=== PATIENT | male | born 1965 | race Caucasian/White ===

== ENCOUNTER 2017-07-12 21:20 | Inpatient (IN) | payer BC ==
[~2017-07-12] VITALS: Ht 172.7 cm; Wt 79.3 kg
[~2017-07-12 21:20] MED LIST: BRIM15DR7 BOTH EYES; BROM1.7D9 OP; CYCL1DRO BOTH EYES; LATA2.5D2 BOTH EYES; LEVO125T75 PO; MECL12.574 PO; TOPI-25 PO
[2017-07-12] MEDS ORDERED: morphine 4 MG/ML VIAL IV STA (22:42)
[2017-07-12] MEDS ORDERED: SOD CHLORIDE 0.9% 500 ML IV STA (22:42)
[2017-07-12] MEDS ORDERED: ONDANSETRON 4 MG INJ IV STA (22:42)
[2017-07-12 23:23] LABS: ADD UMIC NO; UR ASCORBIC ACID NEGATIVE (NEGATIVE); UR BILIRUBIN (Dip) NEGATIVE (NEGATIVE); UR BLOOD (Dip) NEGATIVE (NEGATIVE); UR CLARITY CLEAR (CLEAR); UR COLOR YELLOW (YELLOW); UR GLUCOSE (Dip) NEGATIVE (NEGATIVE); UR KETONES (Dip) NEGATIVE (NEGATIVE); UR LEUKOCYTE ESTERASE (Dip) NEGATIVE Leu/ul (NEGATIVE); UR NITRITE (Dip) NEGATIVE (NEGATIVE); UR SPECIFIC GRAVITY (Dip) 1.025 (1.003-1.030); UR TOTAL PROTEIN (Dip) NEGATIVE (NEGATIVE); UR UROBILINOGEN (Dip) NEGATIVE (NEGATIVE)
--- NOTE | 2017-07-12 23:38 | RADRPT ---
PROCEDURE: XR Chest. CLINICAL INDICATION: Abdominal pain. TECHNIQUE: 2 frontal views of the chest COMPARISON: 11/16/2016 FINDINGS: The cardiomediastinal silhouette is within normal limits. Hypoinflated lungs with mild pulmonary vas cular crowding at lung bases, similar in appearance to prior examination. The lungs are clear. No si gns of pleural fluid or pneumothorax are seen. The osseous structures and soft tissues are unremarka ble. IMPRESSION: No evidence for active cardiopulmonary disease. RPTAT: [facility] Physician Jose Date Time Electronically viewed and signed by Lisbeth Ponce Physician on 07/12/2017 23:38 RS/
--- NOTE | 2017-07-12 23:54 | RADRPT ---
PROCEDURE: CT Abdomen and Pelvis without contrast. CLINICAL INDICATION: Abdominal pain. TECHNIQUE: A CT scan of the abdomen and pelvis was performed without intravenous contrast. Weinstein l and sagittal reformatted images were generated. Images were reviewed on a high-resolution PACS wor kstation. CTDIvol: 10.83 mGy. DLP: 639.42 mGy-cm. One or more of the following dose reduction techniques were used: - Automated exposure control. - Adjustment of the mA and/or kV according to patient size. - Use of iterative reconstruction technique. COMPARISON: None. FINDINGS: Minimal dependent atelectatic changes in both lower lobes. Evaluation of the abdominal and pelvic viscera is limited by the lack of oral and intravenous contra st. The liver is unremarkable. The gallbladder is normal in appearance. The common bile duct is not dila jarvis. The spleen is not enlarged. No pancreatic lesion is identified and there is no pancreatic ducta l dilatation. The adrenal glands are unremarkable. The kidneys are normal in size. There is no perinephric fat stranding. No hydronephrosis is seen. Th ere are nonobstructing stones in both kidneys measuring up to 2 mm on the right. There are patchy inflammatory opacities in the central small bowel mesentery. The small and large b owel are normal in caliber. There is no bowel wall thickening. There is severe colonic diverticulosi s, most prominent along the descending and sigmoid colon. The appendix is prominent (11 mm diameter) , however there are no periappendiceal inflammatory changes. The urinary bladder is unremarkable. The prostate gland is enlarged. There is a small fat containing right inguinal hernia. No lymphadenopathy is identified. There is no ascites. No pneumoperitoneum is seen. There are no art erial calcifications. No suspicious osseous lesion is idenitified. IMPRESSION: 1. Patchy inflammatory opacities in the central small bowel mesentery. These are nonspecific, but m ight represent a panniculitis, lymphadenitis, or possibly lymphedema related to a neoplastic process . 2. Nonobstructing stones in both kidneys measuring up to 2 mm on the right. 3. Prominent appendix (11 mm diameter). This raises the possibility of appendicitis, however there are no periappendiceal inflammatory changes. If there is concern for appendicitis, close clinical f ollow-up is recommended. 4. Severe colonic diverticulosis, most prominent along the descending and sigmoid colon. 5. Enlarged prostate gland. Correlation with PSA level is recommended. 6. Small fat containing right inguinal hernia. RPTAT: HTAR .Cristopher Lou MD, Date Time Electronically viewed and signed by .Cristopher Lou MD, on 07/12/2017 23:53 .R/
--- NOTE | 2017-07-13 00:09 | RADRPT ---
PROCEDURE: US Scrotum. CLINICAL INDICATION: Abdominal pain TECHNIQUE: Multiple sonographic images of the scrotal region were obtained utilizing a linear arra y transducer with grayscale and color-flow Doppler imaging. The images were reviewed on a high-resol [employer] PACS workstation. COMPARISON: No prior studies are available for comparison. FINDINGS: The right testicle is well visualized and has a normal echotexture. No focal areas of abnormal echog enicity are visualized. The right testicle measures 4.3 x 2.1 x 2.6 cm. There is normal color-flow and arterial flow. The right epididymis is visualized and unremarkable in appearance. There is cb l color-flow. The left testicle is well visualized and has a normal echotexture. No focal areas of abnormal echoge nicity are visualized. The left testicle measures 4.2 x 2.2 x 3.2 cm. There is normal color-flow and arterial flow. Enlarged left epididymal head with multiple cystic structures the largest 4.1 x 2.3 x 3.4 cm compatible with a spermatocele. The scrotal wall is unremarkable. No swelling or edema is seen. No other incidental abnormality is identified. IMPRESSION: Enlarged left epididymal head with multiple cystic structures the largest 4.1 x 2.3 x 3.4 cm compati ble with a spermatocele. No evidence of testicular torsion. RPTAT: HJES .Figueroa Diaz MD, MD Date Time Electronically viewed and signed by .Figueroa Diaz MD, MD on 07/13/2017 00:09 .S/
[2017-07-13 00:36] LABS: BASOPHIL # 0.1 10^3/ul (0.0-0.1); BASOPHILS % 1.2 % (0.0-2.0); EOSINOPHILS # 0.8 10^3/ul (0.0-0.5); EOSINOPHILS % 10.4 % (0.0-7.0); HEMATOCRIT 43.7 % (42.0-52.0); HEMOGLOBIN 15.3 g/dl (14.0-18.0); LYMPHOCYTES % 38.6 % (15.0-51.0); MEAN CORPUSCULAR HEMOGLOBIN 31.8 pg (29.0-33.0); MEAN CORPUSCULAR VOLUME 90.9 fl (82.0-101.0); MEAN PLATELET VOLUME 12.1 fl (7.4-10.4); MONOCYTE # 0.7 10^3/ul (0.3-0.9); MONOCYTES % 8.7 % (0.0-11.0); NEUTROPHILS % 40.8 % (39.0-77.0); PLATELET COUNT 160 10^3/UL (140-415); RED BLOOD COUNT 4.81 10^6/ul (4.70-6.10); RED CELL DISTRIBUTION WIDTH 12.9 % (11.5-14.5); WHITE BLOOD COUNT 7.7 10^3/ul (4.8-10.8)
[2017-07-13 00:58] LABS: ALANINE AMINOTRANSFERASE 45 IU/L (13-69); ALBUMIN 4.5 g/dl (3.3-4.9); ALKALINE PHOSPHATASE 49 IU/L (42-121); ANION GAP 18 (8-16); ASPARTATE AMINO TRANSFERASE 32 IU/L (15-46); BILIRUBIN,INDIRECT 0.1 mg/dl (0-1.1); BILIRUBIN,TOTAL 0.1 mg/dl (0.2-1.3); BLOOD UREA NITROGEN 25 mg/dl (7-20); CALCIUM 9.3 mg/dl (8.4-10.2); CARBON DIOXIDE 26 mmol/L (21-31); CHLORIDE 104 mmol/L (97-110); CREATININE 1.02 mg/dl (0.61-1.24); GLUCOSE 78 mg/dl (70-220); POTASSIUM 3.8 mmol/L (3.5-5.1); SODIUM 144 mmol/L (135-144); TOTAL PROTEIN 7.7 g/dl (6.1-8.1)
[2017-07-13 01:17] LABS: TROPONIN-I < 0.012 ng/ml (0.00-0.12)
[2017-07-13 01:25] VITALS: TEMP 97.5
--- NOTE | 2017-07-13 01:44 | ERA ---
ER Documentation Chief Complaint Date/Time DATE: 07/13/17 TIME: 01:38 Chief Complaint left sided abd pain x 2 months, testicular pain x 1 week HPI 52-year-old male convalescent abdominal pain for 2 months on and off. Denies any fevers or chills. Denies any nausea vomiting. Denies any other current complaints. Pain is mild to moderate intensity. He also complains of a weight loss. Also noticed new testicular lump of the past 2-3 days. ROS All systems reviewed and are negative except as per history of present illness. Medications Home Meds Active Scripts Meclizine Hcl* (Antivert*) 12.5 Mg Tab, 12.5 MG PO Q8 Y for vertigo, #30 TAB Prov:MAR BOWER 11/19/16 Reported Medications Latanoprost (Latanoprost) 2.5 Ml Drops, 1 DROP BOTH EYES QHS, #1 BOTTLE 11/16/16 Brimonidine Tartrate* (Brimonidine Tartrate*) 0.2%-15ML Drop Opht, 1 DROP BOTH EYES Q8, #1 EA 11/16/16 Bromfenac Sodium (Bromfenac Sodium) 1.7 Ml Drops, 1.7 ML OP QAM, BOTTLE 11/16/16 Cyclosporine (RESTASIS) 1 Each Droperette, 1 DROP BOTH EYES Q12, #1 BOX 11/16/16 Levothyroxine Sodium* (Levothyroxine Sodium*) 125 Mcg Tablet, 125 MCG PO BEFORE BREAKFAST, #30 TAB 11/16/16 Topiramate* (Topiramate*) 100 Mg Tablet, 100 MG PO BID, TAB 11/16/16 Allergies Allergies: Coded Allergies: No Known Allergies (Verified Allergy, Unknown, 11/17/16) PMhx/Soc Medical and Surgical Hx: pt denies Medical Hx, pt denies Surgical Hx History of Surgery: Yes (bilateral eyes 3x) Anesthesia Reaction: No Hx Neurological Disorder: No Hx Respiratory Disorders: No Hx Cardiac Disorders: No Hx Psychiatric Problems: Yes (depression) Hx Miscellaneous Medical Probl: No Hx Alcohol Use: No Hx Substance Use: No Hx Tobacco Use: No Smoking Status: Never smoker Physical Exam Vitals Vital Signs Date Time Temp Pulse Resp B/P Pulse Ox O2 Delivery O2 Flow Rate FiO2 07/13/17 01:25 97.5 60 16 155/87 100 Room Air 07/12/17 21:24 97.9 67 20 161/89 100 Physical Exam Const: [] Head: Atraumatic Eyes: Normal Conjunctiva ENT: Normal External Ears, Nose and Mouth. Neck: Full range of motion..~ No meningismus. Resp: Clear to auscultation bilaterally Cardio: Regular rate and rhythm, no murmurs Abd: Soft, non tender, non distended. Normal bowel sounds Skin: No petechiae or rashes Back: No midline or flank tenderness Ext: No cyanosis, or edema Neur: Awake and alert Psych: Normal Mood and Affect Result Diagram: 07/12/17 2350 07/12/17 2350 Results 24 hrs Laboratory Tests Test 07/12/17 23:00 07/12/17 23:50 Urine Color YELLOW Urine Clarity CLEAR Urine pH 6.0 Urine Specific [place] 1.025 Urine Ketones NEGATIVEmg/dL Urine Nitrite NEGATIVEmg/dL Urine Bilirubin NEGATIVEmg/dL Urine Urobilinogen NEGATIVEmg/dL Urine Leukocyte Esterase NEGATIVELeu/ul Urine Hemoglobin NEGATIVEmg/dL Urine Glucose NEGATIVEmg/dL Urine Total Protein NEGATIVEmg/dl White Blood Count 7.710^3/ul Red Blood Count 4.8110^6/ul Hemoglobin 15.3g/dl Hematocrit 43.7% Mean Corpuscular Volume 90.9fl Mean Corpuscular Hemoglobin 31.8pg Mean Corpuscular Hemoglobin Concent 35.0g/dl Red Cell Distribution Width 12.9% Platelet Count 30753^3/UL Mean Platelet Volume 12.1fl Neutrophils % 40.8% Lymphocytes % 38.6% Monocytes % 8.7% Eosinophils % 10.4% Basophils % 1.2% Nucleated Red Blood Cells % 0.0/100WBC Neutrophils # (Manual) 3.210^3/ul Lymphocytes # 3.010^3/ul Monocytes # 0.710^3/ul Eosinophils # 0.810^3/ul Basophils # 0.110^3/ul Nucleated Red Blood Cells # 0.010^3/ul Sodium Level 144mmol/L Potassium Level 3.8mmol/L Chloride Level 104mmol/L Carbon Dioxide Level 26mmol/L Anion Gap 18 Blood Urea Nitrogen 25mg/dl Creatinine 1.02mg/dl Glucose Level 78mg/dl Calcium Level 9.3mg/dl Total Bilirubin 0.1mg/dl Direct Bilirubin 0.00mg/dl Indirect Bilirubin 0.1mg/dl Aspartate Amino Transf (AST/SGOT) 32IU/L Alanine Aminotransferase (ALT/SGPT) 45IU/L Alkaline Phosphatase 49IU/L Troponin I < 0.012ng/ml Total Protein 7.7g/dl Albumin 4.5g/dl Globulin 3.20g/dl Albumin/Globulin Ratio 1.40 Lipase 151U/L Current Medications Medications (Trade) Dose Ordered Sig/Ary Route PRN Reason Start Time Stop Time Status Last Admin Dose Admin Sodium Chloride (NS) 500 ml @ 500 mls/hr Q1H STAT IV 07/12/17 22:42 07/12/17 23:46 DC 07/12/17 23:13 Morphine Sulfate (morphine) 4 mg ONCE STAT IV 07/12/17 22:42 07/12/17 22:43 DC 07/12/17 23:12 Ondansetron HCl (Zofran Inj) 4 mg ONCE STAT IV 07/12/17 22:42 07/12/17 22:44 DC 07/12/17 23:12 Procedures/MDM Patient has many signs and symptoms of vague cancer complaints. CT does show questionable adenopathy as well. Given this I feel the patient is to be admitted for further evaluation and management. Hospitalist is been notified. Departure Diagnosis: Primary Impression: Abdominal pain Qualified Code: R10.9 - Abdominal pain, unspecified location Condition: Serious DARYAMYLESJUAN CADELSOBia Jul 13, 2017 01:43
[2017-07-13 02:15] VITALS: BP 145/90; RESP 19
[2017-07-13 02:24] VITALS: Ht 172.7 cm; Wt 79.3 kg
[2017-07-13] MEDS ORDERED: ONDANSETRON 4 MG INJ IV PRN (02:30)
[2017-07-13] MEDS ORDERED: ACETAMINOPHEN 325 MG TAB PO PRN (02:30)
[2017-07-13] MEDS ORDERED: morphine 4 MG/ML VIAL IV PRN (02:30)
[2017-07-13] MEDS ORDERED: MECLIZINE 12.5 MG TAB PO PRN (04:30)
[2017-07-13 05:22] LABS: BASOPHIL # 0.1 10^3/ul (0.0-0.1); BASOPHILS % 1.2 % (0.0-2.0); EOSINOPHILS # 0.9 10^3/ul (0.0-0.5); HEMATOCRIT 41.5 % (42.0-52.0); HEMOGLOBIN 14.6 g/dl (14.0-18.0); LYMPHOCYTES # 2.9 10^3/ul (0.8-2.9); LYMPHOCYTES % 41.9 % (15.0-51.0); MEAN CORPUSCULAR HEMOGLOBIN 31.9 pg (29.0-33.0); MEAN CORPUSCULAR HGB CONC 35.2 g/dl (32.0-37.0); MEAN CORPUSCULAR VOLUME 90.8 fl (82.0-101.0); MEAN PLATELET VOLUME 12.4 fl (7.4-10.4); MONOCYTE # 0.6 10^3/ul (0.3-0.9); MONOCYTES % 8.6 % (0.0-11.0); NEUTROPHILS % 35.2 % (39.0-77.0); PLATELET COUNT 139 10^3/UL (140-415); RED BLOOD COUNT 4.57 10^6/ul (4.70-6.10); RED CELL DISTRIBUTION WIDTH 13.2 % (11.5-14.5); WHITE BLOOD COUNT 6.9 10^3/ul (4.8-10.8)
[2017-07-13] MEDS: LEVOTHYROXINE 125 MCG TAB PO SCH (05:25)
[2017-07-13] MEDS: BRIMONIDINE 0.2% 5 ML BTL BOTH EYES SCH ×3 (05:38→22:00)
[2017-07-13 05:48] LABS: ALBUMIN 4.2 g/dl (3.3-4.9); ALBUMIN/GLOBULIN RATIO 1.55; BILIRUBIN,INDIRECT 0.2 mg/dl (0-1.1); BILIRUBIN,TOTAL 0.2 mg/dl (0.2-1.3); CALCIUM 8.7 mg/dl (8.4-10.2); CREATININE 0.98 mg/dl (0.61-1.24); PHOSPHORUS 3.7 mg/dl (2.5-4.9); POTASSIUM 3.4 mmol/L (3.5-5.1); TOTAL PROTEIN 6.9 g/dl (6.1-8.1)
--- NOTE | 2017-07-13 05:59 | HP ---
Date/Time of Note Date/Time of Note DATE: 07/13/17 TIME: 05:41 Assessment/Plan VTE Prophylaxis VTE Prophylaxis Intervention: SCD's Lines/Catheters IV Catheter Type (from Nrs): Saline Lock Assessment/Plan Assessment/Plan 1. Abdominal pain -This has been chronic for the past 2 months, with associated nausea and nonbloody nonbilious emesis -Pain management as needed. -will place a GI consult for possible colonoscopy -Also given the finding of patchy opacity in the central small bowel mesentery, will place an oncology consult given the possibility of this being a neoplastic process. -Spoke with Dr. Whiting, on-call surgeon about enlarged appendix. For now it is felt not to be a surgical case. Will reconsult as needed based on clinical course. Patient with normal white count and is afebrile. 2. History of Graves' disease, now in hypothyroid state -Continue Synthroid 3. Enlarged prostate -will check PSA HPI/ROS Admit Date/Time Admit Date/Time Jul 13, 2017 at 00:49 Hx of Present Illness This is a 52-year-old female with a history of Graves' disease who presented to the emergency department complaining of abdominal pain 2 months. Patient also complains of nausea and nonbloody non-bilious emesis. Denied fever, chills, constipation or diarrhea. When presented to the ER initial vitals were within normal limits. BUN of 25 otherwise CBC and CMP also within acceptable range. CT abd/pelvis shows the following 1. Patchy inflammatory opacities in the central small bowel mesentery. These are nonspecific, but might represent a panniculitis, lymphadenitis, or possibly lymphedema related to a neoplastic process. 2. Nonobstructing stones in both kidneys measuring up to 2 mm on the right. 3. Prominent appendix (11 mm diameter). This raises the possibility of appendicitis, however there are no periappendiceal inflammatory changes. If there is concern for appendicitis, close clinical follow-up is recommended. 4. Severe colonic diverticulosis, most prominent along the descending and sigmoid colon. 5. Enlarged prostate gland. Correlation with PSA level is recommended. 6. Small fat containing right inguinal hernia. Testicular ultrasound shows: Enlarged left epididymal head with multiple cystic structures the largest 4.1 x 2.3 x 3.4 cm compatible with a spermatocele. No evidence of testicular torsion. PMH/Family/Social Past Medical History Medical History: other (Graves' disease) Social History Alcohol Use: rarely Smoking Status: Never smoker Drug Use: none Exam/Review of Systems Vital Signs Vitals Vital Signs Date Time Temp Pulse Resp B/P Pulse Ox O2 Delivery O2 Flow Rate FiO2 07/13/17 02:15 98.1 59 19 145/90 95 07/13/17 01:25 Room Air Intake and Output 07/12/17 07/12/17 07/13/17 14:59 22:59 06:59 Intake Total 500 ml Balance 500 ml Exam Constitutional: alert, oriented, well developed Head: atraumatic, normocephalic Eyes: EOMI, PERRL Respiratory: clear to auscultation, normal air movement Cardiovascular: nl pulses, regular rate and rhythm Gastrointestinal: soft, tender Extremities: normal pulses Labs Result Diagram: 07/13/17 0451 07/12/17 6720 Medications Medications Current Medications Morphine Sulfate (morphine) 4 mg Q4H PRN IV PAIN; Start 07/13/17 at 02:30 Ondansetron HCl (Zofran Inj) 4 mg Q6H PRN IV NAUSEA AND/OR VOMITING; Start at 02:30 Acetaminophen (Tylenol Tab) 650 mg Q6H PRN PO PAIN AND OR ELEVATED TEMP; Start 07/13/17 at 02:30 Heparin Sodium (Porcine) (Heparin (5000 Units/0.5 ml)) 5,000 unit BID SC ; Start 07/13/17 at 09:00 Levothyroxine Sodium (Synthroid) 125 mcg DAILY@06 PO Last administered on t 05:25; Admin Dose 125 MCG; Start 07/13/17 at 06:00 Topiramate (Topamax) 100 mg BID PO ; Start 07/13/17 at 09:00 Brimonidine Tartrate (Alphagan 0.2%) 1 drop Q8 BOTH EYES ; Start 07/13/17 at 06: 00 Cyclosporine (Restasis) 1 drop Q12 BOTH EYES ; Start 07/13/17 at 09:00 Latanoprost (Xalatan) 1 drop QHS BOTH EYES ; Start 07/13/17 at 21:00 Meclizine HCl (Antivert) 12.5 mg Q8 PRN PO vertigo; Start 07/13/17 at 04:30 ADELSO MA MD Jul 13, 2017 05:51
[2017-07-13 07:00] VITALS: BP 130/80; RESP 20
[2017-07-13] MEDS: HEPARIN 5,000 UNIT/0.5 ML VIAL SC SCH ×2 (08:39→20:16)
[2017-07-13] MEDS: CYCLOSPORINE 0.05% OPH DROPERETTE BOTH EYES SCH ×2 (08:39→20:15)
[2017-07-13] MEDS ORDERED: TOPIRAMATE 100 MG TAB PO SCH (09:00)
[2017-07-13 14:00] VITALS: BP 115/70; RESP 18
[2017-07-13] MEDS ORDERED: POTASSIUM CHLORIDE (SR) 20 MEQ TAB PO STA (14:23)
[2017-07-13] MEDS ORDERED: POTASSIUM CHLORIDE 250 ML IVPB ONE (15:00)
[2017-07-13 19:55] VITALS: BP 132/62; RESP 20
--- NOTE | 2017-07-13 20:12 | CONS ---
Date/Time of Note Date/Time of Note DATE: 07/13/17 TIME: 20:05 Assessment/Plan Assessment/Plan Additional Assessment/Plan Assessment * Abdominal pain left lower quadrant R/O diverticulosis by ct scan * Graves disease Plan * clear liquids * colonoscopy tomorrow risks and benefit explained to patient agreed with the plan * case discussed with Dr Garland * further orders will depend on clinical course Consultation Date/Type/Reason Admit Date/Time Jul 13, 2017 at 00:49 Date of Consultation: Jul 13, 2017 Type of Consultation: gastroenterology Reason for Consultation abdominal pain left lower quadrant Referring Provider: ARMANDO GAGNON Hx of Present Illness 52 year old male with history of graves disease complaining of left lower quadrant pain x 2 months duration with associated constipation,denies any diarrhea,hematochezias,lost of weight,hematemesis nor changes in bowel caliber.CT scan revealed 1. Patchy inflammatory opacities in the central small bowel mesentery. These are nonspecific, but might represent a panniculitis, lymphadenitis, or possibly lymphedema related to a neoplastic process. 2. Nonobstructing stones in both kidneys measuring up to 2 mm on the right. 3. Prominent appendix (11 mm diameter). This raises the possibility of appendicitis, however there are no periappendiceal inflammatory changes. If there is concern for appendicitis, close clinical follow-up is recommended. 4. Severe colonic diverticulosis, most prominent along the descending and sigmoid colon. 5. Enlarged prostate gland. Correlation with PSA level is recommended. 6. Small fat containing right inguinal hernia. Constitutional: improved, no complaints Eyes: no complaints ENT: no complaints Respiratory: no complaints Cardiovascular: no complaints Gastrointestinal: no complaints Genitourinary: no complaints Musculoskeletal: no complaints Skin: no complaints Neurologic: no complaints Endocrine: no complaints Lymphatic: no complaints Psychological: nl mood/affect, no complaints Immunologic: no complaints Past Medical History Medical History: other (Graves' disease) Past Surgical History Past Surgical Hx: no surgical history Family History Significant Family History: no pertinent family hx Social History Alcohol Use: rarely Smoking Status: Never smoker Drug Use: none Exam/Review of Systems Vital Signs Vitals Vital Signs Date Time Temp Pulse Resp B/P Pulse Ox O2 Delivery O2 Flow Rate FiO2 07/13/17 14:00 97.9 62 18 115/70 99 07/13/17 01:25 Room Air Intake and Output 07/12/17 07/12/17 07/13/17 15:00 23:00 07:00 Intake Total 950 ml Output Total 600 ml Balance 350 ml Results Result Diagram: 07/13/17 0451 07/13/17 0450 Results 24 hrs Laboratory Tests Test 07/12/17 23:00 07/12/17 23:50 07/13/17 04:50 07/13/17 04:51 Urine Color YELLOW Urine Clarity CLEAR Urine pH 6.0 Urine Specific [place] 1.025 Urine Ketones NEGATIVE Urine Nitrite NEGATIVE Urine Bilirubin NEGATIVE Urine Urobilinogen NEGATIVE Urine Leukocyte Esterase NEGATIVE Urine Hemoglobin NEGATIVE Urine Glucose NEGATIVE Urine Total Protein NEGATIVE White Blood Count 7.7 6.9 Red Blood Count 4.81 4.57 L Hemoglobin 15.3 14.6 Hematocrit 43.7 41.5 L Mean Corpuscular Volume 90.9 90.8 Mean Corpuscular Hemoglobin 31.8 31.9 Mean Corpuscular Hemoglobin Concent 35.0 35.2 Red Cell Distribution Width 12.9 13.2 Platelet Count 160 139 L Mean Platelet Volume 12.1 H 12.4 H Neutrophils % 40.8 35.2 L Lymphocytes % 38.6 41.9 Monocytes % 8.7 8.6 Eosinophils % 10.4 H 13.0 H Basophils % 1.2 1.2 Nucleated Red Blood Cells % 0.0 0.0 Neutrophils # (Manual) 3.2 2.4 Lymphocytes # 3.0 H 2.9 Monocytes # 0.7 0.6 Eosinophils # 0.8 H 0.9 H Basophils # 0.1 0.1 Nucleated Red Blood Cells # 0.0 0.0 Sodium Level 144 140 Potassium Level 3.8 3.4 L Chloride Level 104 106 Carbon Dioxide Level 26 26 Anion Gap 18 H 11 # Blood Urea Nitrogen 25 H 19 Creatinine 1.02 0.98 Glucose Level 78 111 Calcium Level 9.3 8.7 Total Bilirubin 0.1 L 0.2 Direct Bilirubin 0.00 0.00 Indirect Bilirubin 0.1 0.2 Aspartate Amino Transf (AST/SGOT) 32 31 Alanine Aminotransferase (ALT/SGPT) 45 45 Alkaline Phosphatase 49 42 Troponin I < 0.012 Total Protein 7.7 6.9 Albumin 4.5 4.2 Globulin 3.20 2.70 Albumin/Globulin Ratio 1.40 1.55 Lipase 151 Phosphorus Level 3.7 Magnesium Level 2.0 Prostate Specific Antigen 0.5 Medications Medications Current Medications Morphine Sulfate (morphine) 4 mg Q4H PRN IV PAIN; Start 07/13/17 at 02:30 Ondansetron HCl (Zofran Inj) 4 mg Q6H PRN IV NAUSEA AND/OR VOMITING; Start at 02:30 Acetaminophen (Tylenol Tab) 650 mg Q6H PRN PO PAIN AND OR ELEVATED TEMP; Start 07/13/17 at 02:30 Heparin Sodium (Porcine) (Heparin (5000 Units/0.5 ml)) 5,000 unit BID SC ; Start 07/13/17 at 09:00 Levothyroxine Sodium (Synthroid) 125 mcg DAILY@06 PO Last administered on t 05:25; Admin Dose 125 MCG; Start 07/13/17 at 06:00 Brimonidine Tartrate (Alphagan 0.2%) 1 drop Q8 BOTH EYES ; Start 07/13/17 at 06: 00 Cyclosporine (Restasis) 1 drop Q12 BOTH EYES ; Start 07/13/17 at 09:00 Latanoprost (Xalatan) 1 drop QHS BOTH EYES ; Start 07/13/17 at 21:00 Meclizine HCl (Antivert) 12.5 mg Q8 PRN PO vertigo; Start 07/13/17 at 04:30 Topiramate (Topamax) 50 mg BID PO ; Start 07/13/17 at 21:00 JASON GOEL NP Jul 13, 2017 20:12
[2017-07-13] MEDS: TOPIRAMATE 25 MG TAB PO SCH (20:14)
[2017-07-13] MEDS: LATANOPROST 0.005% 2.5 ML OPH BOTH EYES SCH (20:16)
[2017-07-13] MEDS ORDERED: BISACODYL (EC) 5 MG TAB PO ONE (20:30)
[2017-07-13] MEDS ORDERED: MAGNESIUM CITRATE 300 ML BTL PO ONE (21:00)
[2017-07-13] MEDS ORDERED: POLYETHYLENE GLYCOL 3350 119 GM POWDER PO ONE (22:30)
[2017-07-14] VITALS (8 sets, daily range): BP systolic 115–133; BP diastolic 77–87; PULSE 60–77; RESP 14–21
[2017-07-14 05:38] LABS: BASOPHIL # 0.1 10^3/ul (0.0-0.1); BASOPHILS % 1.3 % (0.0-2.0); EOSINOPHILS # 0.9 10^3/ul (0.0-0.5); EOSINOPHILS % 12.3 % (0.0-7.0); HEMOGLOBIN 15.9 g/dl (14.0-18.0); LYMPHOCYTES # 2.5 10^3/ul (0.8-2.9); LYMPHOCYTES % 35.8 % (15.0-51.0); MEAN CORPUSCULAR HEMOGLOBIN 31.5 pg (29.0-33.0); MEAN CORPUSCULAR HGB CONC 34.6 g/dl (32.0-37.0); MEAN CORPUSCULAR VOLUME 91.1 fl (82.0-101.0); MEAN PLATELET VOLUME 12.5 fl (7.4-10.4); MONOCYTE # 0.6 10^3/ul (0.3-0.9); MONOCYTES % 8.5 % (0.0-11.0); NEUTROPHILS % 41.8 % (39.0-77.0); PLATELET COUNT 167 10^3/UL (140-415); RED BLOOD COUNT 5.05 10^6/ul (4.70-6.10); RED CELL DISTRIBUTION WIDTH 13.2 % (11.5-14.5)
[2017-07-14 05:53] LABS: CALCIUM 9.3 mg/dl (8.4-10.2); CREATININE 1.08 mg/dl (0.61-1.24); POTASSIUM 3.8 mmol/L (3.5-5.1)
[2017-07-14] MEDS: BRIMONIDINE 0.2% 5 ML BTL BOTH EYES SCH ×3 (06:00→21:38)
[2017-07-14] MEDS ORDERED: POLYETHYLENE GLYCOL 3350 119 GM POWDER PO ONE (06:00)
[2017-07-14] MEDS: LEVOTHYROXINE 125 MCG TAB PO SCH (06:47)
[2017-07-14] MEDS ORDERED: LIDOCAINE 2% (SDV) 5 ML INJ ONE (07:00)
[2017-07-14] MEDS ORDERED: BISACODYL (EC) 5 MG TAB PO ONE (08:00)
[2017-07-14] MEDS: TOPIRAMATE 25 MG TAB PO SCH ×2 (08:32→20:10)
[2017-07-14] MEDS: CYCLOSPORINE 0.05% OPH DROPERETTE BOTH EYES SCH ×2 (08:34→21:00)
[2017-07-14] MEDS: HEPARIN 5,000 UNIT/0.5 ML VIAL SC SCH ×2 (08:34→21:26)
--- NOTE | 2017-07-14 12:01 | PN ---
Date/Time of Note Date/Time of Note DATE: 07/14/17 TIME: 11:59 Assessment/Plan VTE Prophylaxis VTE Prophylaxis Intervention: SCD's Lines/Catheters IV [facility]from [facility] Saline [facility] Urinary Cath still in place: No Assessment/Plan Chief Complaint/Hosp Course Assessment/Plan: 52-year-old male who presents with: 1. Abdominal pain - This has been chronic for the past 2 months, with associated nausea and nonbloody nonbilious emesis -Continue pain management as needed. -Per GI consult medications, for colonoscopy later today -Also given the finding of patchy opacity in the central small bowel mesentery, consider oncology consult given the possibility of this being a neoplastic process. Of note, admitting MD spoke with Dr. Whiting, on-call surgeon about enlarged appendix. For now it is felt not to be a surgical case. Will reconsult as needed based on clinical course. Patient with normal white count and is afebrile. 2. History of Graves' disease, now in hypothyroid state -Continue Synthroid 3. Enlarged prostate Follow-up PSA Problems: Subjective 24 Hr Interval Summary Free Text/Dictation Patient has less abdominal pain. Awaiting colonoscopy for later today. Exam/Review of Systems Vital Signs Vitals Vital Signs Date Time Temp Pulse Resp B/P Pulse Ox O2 Delivery O2 Flow Rate FiO2 07/14/17 07:51 98.2 61 18 118/81 96 07/13/17 01:25 Room Air Intake and Output 07/13/17 07/13/17 07/14/17 15:00 23:00 07:00 Intake Total 1180 ml 920 ml Output Total 1800 ml Balance -620 ml 920 ml Exam Constitutional: alert, oriented, well developed Head: atraumatic, normocephalic Eyes: EOMI, PERRL Respiratory: clear to auscultation, normal air movement Cardiovascular: nl pulses, regular rate and rhythm Gastrointestinal: soft, tender Extremities: normal pulses Results Result Diagram: 07/14/17 0446 07/14/17 0510 Results 24 hrs Laboratory Tests Test 07/14/17 04:46 07/14/17 05:10 White Blood Count 7.0 Red Blood Count 5.05 Hemoglobin 15.9 Hematocrit 46.0 Mean Corpuscular Volume 91.1 Mean Corpuscular Hemoglobin 31.5 Mean Corpuscular Hemoglobin Concent 34.6 Red Cell Distribution Width 13.2 Platelet Count 167 # Mean Platelet Volume 12.5 H Neutrophils % 41.8 Lymphocytes % 35.8 Monocytes % 8.5 Eosinophils % 12.3 H Basophils % 1.3 Nucleated Red Blood Cells % 0.0 Neutrophils # (Manual) 2.9 Lymphocytes # 2.5 Monocytes # 0.6 Eosinophils # 0.9 H Basophils # 0.1 Nucleated Red Blood Cells # 0.0 Sodium Level 140 Potassium Level 3.8 Chloride Level 106 Carbon Dioxide Level 25 Anion Gap 13 Blood Urea Nitrogen 16 Creatinine 1.08 Glucose Level 108 Calcium Level 9.3 Medications Medications Current Medications Morphine Sulfate (morphine) 4 mg Q4H PRN IV PAIN; Start 07/13/17 at 02:30 Ondansetron HCl (Zofran Inj) 4 mg Q6H PRN IV NAUSEA AND/OR VOMITING; Start at 02:30 Acetaminophen (Tylenol Tab) 650 mg Q6H PRN PO PAIN AND OR ELEVATED TEMP; Start 07/13/17 at 02:30 Heparin Sodium (Porcine) (Heparin (5000 Units/0.5 ml)) 5,000 unit BID SC ; Start 07/13/17 at 09:00 Levothyroxine Sodium (Synthroid) 125 mcg DAILY@06 PO Last administered on 06:47; Admin Dose 125 MCG; Start 07/13/17 at 06:00 Brimonidine Tartrate (Alphagan 0.2%) 1 drop Q8 BOTH EYES ; Start 07/13/17 at 06: 00 Cyclosporine (Restasis) 1 drop Q12 BOTH EYES ; Start 07/13/17 at 09:00 Latanoprost (Xalatan) 1 drop QHS BOTH EYES ; Start 07/13/17 at 21:00 Meclizine HCl (Antivert) 12.5 mg Q8 PRN PO vertigo Last administered on 22:46; Admin Dose 12.5 MG; Start 07/13/17 at 04:30 Topiramate (Topamax) 50 mg BID PO Last administered on 07/14/17 08:32; Admin Dose 50 MG; Start 07/13/17 at 21:00 Topiramate (Topamax) 100 mg BID PO ; Start 07/14/17 at 21:00; Status ARMANDO WILLS S. Jul 14, 2017 12:01
[2017-07-14] MEDS ORDERED: PROPOFOL 60 ML ONE (17:04)
--- NOTE | 2017-07-14 17:28 | OPPN ---
Date/Time of Note Date/Time of Note DATE: 07/14/17 TIME: 17:22 Proc Note GI Free Text/Dictation Procedure Date: 07/14/2017 Preoperative Diagnosis: Left lower quadrant abdominal pain Postoperative Diagnosis: * 2 small 3 mm ea. polyps in the rectum. Ablated * Moderate to severe diverticulosis left colon. * Melanosis coli * Moderate-sized internal hemorrhoids Plan: * Advance diet as tolerated/high-fiber diet * Levsin 0.125 mg sublingual every 4 hours as needed for pain * Review pathology as soon as available * Annual Hemoccult stool testing * Surveillance colonoscopy in 5 years pending review pathology Operation Performed: Colonoscopy Surgeon: Jami Garland MD Physiotherapist'S Assistant: None Second Director Media: None Anesthesia/Sedation monitored anesthesia care/Dr. Wong Tourniquet Time: NA Estimated Blood Loss: 0 Transfusion Required: No Specimens: Rectal polyps Grafts/Implants: None Tubes/Drains: NA Complications: None Pt. Condition Post Procedure: Stable Disposition: PACU After informed consent, with the patient/relatives understanding the procedure, its indications and potential risks and complications, including but not limited to: Allergic reaction, bleeding, perforation, infection, and after all pertinent questions were answered to the patient's satisfaction, the patient/ relatives signed the witnessed informed consent. Following this, premedication was administered slowly IV push under careful cardiovascular and respiratory monitoring with pulse OXIMETRY, automatic blood pressure, and monitoring tech. Once the sedative effect was achieved, the patient was placed in the left lateral decubitus position, digital rectal examination was performed. A colonoscope was then introduced and advanced under visual control throughout all segments of the colon including: [the rectum, sigmoid, descending colon, splenic flexure, transverse colon, hepatic flexure, ascending colon and finally reaching the cecum which was clearly identified by transillumination, finger indentation and the ileocecal valve.] Careful examination of the mucosa of the lower gastrointestinal tract both on insertion as well as withdrawal of the instrument disclosed the following findings: Preparation quality: [Adequate], Rectal Examination: The anorectal area was visualized examined and digital rectal examination performed with the following findings: [No evidence of perirectal disease, no masses.] Colonic mucosa: The mucosa of all segments of the colon was carefully examined and showed the following findings: There is evidence of melanosis coli of a moderate degree and of universal distribution. There is significant left-sided diverticulosis with no evidence of complications. There are 2 small polyps measuring 3 mm in the rectum. Ablated with biopsy forceps. There are moderate- sized internal hemorrhoids. Otherwise the examined mucosa appears within normal limits. There is no evidence of inflammatory changes, other neoplasms, vascular malformation, or any other abnormality.] The instrument was then withdrawn, the patient tolerated the procedure well and was transferred out of the Endoscopy Suite awake and in good condition to continue recovery under observation. Procedure date: Jul 14, 2017 JAMI GARLAND MD Jul 14, 2017 17:27
[2017-07-14] MEDS ORDERED: HYOSCYAMINE 0.125 MG SUBL TAB SL PRN (17:30)
[2017-07-14] MEDS: TOPIRAMATE 100 MG TAB PO SCH (20:10)
[2017-07-14] MEDS: LATANOPROST 0.005% 2.5 ML OPH BOTH EYES SCH (21:00)
[2017-07-14] MEDS ORDERED: ZOLPIDEM 5 MG TAB PO PRN (21:30)
[2017-07-15 02:51] VITALS: BP 127/60; RESP 20
[2017-07-15 05:21] LABS: BASOPHIL # 0.1 10^3/ul (0.0-0.1); BASOPHILS % 0.9 % (0.0-2.0); EOSINOPHILS # 0.7 10^3/ul (0.0-0.5); EOSINOPHILS % 8.3 % (0.0-7.0); HEMATOCRIT 47.8 % (42.0-52.0); HEMOGLOBIN 16.4 g/dl (14.0-18.0); LYMPHOCYTES # 2.3 10^3/ul (0.8-2.9); LYMPHOCYTES % 26.2 % (15.0-51.0); MEAN CORPUSCULAR HEMOGLOBIN 31.2 pg (29.0-33.0); MEAN CORPUSCULAR HGB CONC 34.3 g/dl (32.0-37.0); MEAN PLATELET VOLUME 12.9 fl (7.4-10.4); MONOCYTE # 0.7 10^3/ul (0.3-0.9); MONOCYTES % 8.2 % (0.0-11.0); NEUTROPHILS % 56.1 % (39.0-77.0); PLATELET COUNT 167 10^3/UL (140-415); RED BLOOD COUNT 5.25 10^6/ul (4.70-6.10); RED CELL DISTRIBUTION WIDTH 13.4 % (11.5-14.5); WHITE BLOOD COUNT 8.8 10^3/ul (4.8-10.8)
[2017-07-15] MEDS: BRIMONIDINE 0.2% 5 ML BTL BOTH EYES SCH ×2 (05:27→14:00)
[2017-07-15 05:31] LABS: CALCIUM 9.3 mg/dl (8.4-10.2); CREATININE 1.14 mg/dl (0.61-1.24); POTASSIUM 4.8 mmol/L (3.5-5.1)
[2017-07-15] MEDS ORDERED: LEVOTHYROXINE 125 MCG TAB PO SCH (07:00)
[2017-07-15 08:14] VITALS: BP 128/87; RESP 18
[2017-07-15] MEDS: CYCLOSPORINE 0.05% OPH DROPERETTE BOTH EYES SCH (09:00)
[2017-07-15] MEDS: HEPARIN 5,000 UNIT/0.5 ML VIAL SC SCH (09:00)
[2017-07-15] MEDS: TOPIRAMATE 100 MG TAB PO SCH (09:34)
[2017-07-15] MEDS: TOPIRAMATE 25 MG TAB PO SCH (09:34)
--- NOTE | 2017-07-15 13:49 | PDOCDIS ---
Discharge Instructions CONDITION Patient Condition: Stable HOME CARE INSTRUCTIONS: Diet Instructions: Regular ACTIVITY: Activity Restrictions: Slowly Increase Activity FOLLOW UP/APPOINTMENTS Follow-up Plan Please take your medications as prescribed. Please follow-up with your regular doctor in the clinic in the next 1 week. ARMANDO GAGNON Jul 15, 2017 13:49
[2017-07-15] MEDS ORDERED: HYOS0.1212 SL (13:50)
[2017-07-15] MEDS ORDERED: TOPI25TA38 PO (13:50)
--- NOTE | 2017-07-15 13:59 | DS ---
Date/Time of Note Date/Time of Note DATE: 07/15/17 TIME: 13:54 Discharge Summary Admission/Discharge Info Admit Date/Time Jul 13, 2017 at 00:49 Discharge Date/Time Discharge Diagnosis 1. Abdominal pain -status post colonoscopy with findings of melanosis Coli, 2 rectal polyps removed, and moderate to severe diverticulosis -overall improved 2. History of Graves' disease 3. Enlarged prostate -normal PSA levels Patient Condition: Stable Hx of Present Illness Hospital Course 52-year-old female with a history of Graves' disease who presented to the emergency department complaining of abdominal pain 2 months. Patient also complains of nausea and nonbloody non-bilious emesis. Denied fever, chills, constipation or diarrhea. When presented to the ER initial vitals were within normal limits. BUN of 25 otherwise CBC and CMP also within acceptable range. Patient was admitted to [facility] floor, seen by GI team. CT abd/pelvis was performed and showed the followin. Patchy inflammatory opacities in the central small bowel mesentery. These are nonspecific, but might represent a panniculitis, lymphadenitis, or possibly lymphedema related to a neoplastic process. 2. Nonobstructing stones in both kidneys measuring up to 2 mm on the right. 3. Prominent appendix (11 mm diameter). This raises the possibility of appendicitis, however there are no periappendiceal inflammatory changes. If there is concern for appendicitis, close clinical follow-up is recommended. 4. Severe colonic diverticulosis, most prominent along the descending and sigmoid colon. 5. Enlarged prostate gland. Correlation with PSA level is recommended. 6. Small fat containing right inguinal hernia. Testicular ultrasound shows: Enlarged left epididymal head with multiple cystic structures the largest 4.1 x 2.3 x 3.4 cm compatible with a spermatocele. No evidence of testicular torsion. Patient was medically treated for his testicular issues, regarding his abdominal pain and CT scan findings, patient underwent colonoscopy by GI team. There was findings of melanosis Coli, 2 rectal polyps which were removed, and moderate severe diverticulosis. Patient's symptoms improved, he was able to ambulate, tolerated p.o. diet, and after getting clearance from GI team, he will be discharged home today improved condition. See below for full list of discharge medications. Home Meds Active Scripts Hyoscyamine Sulfate* (Hyoscyamine Sulfate*) 0.125 Mg Tab.subl, 0.125 MG SL Q4H Y for pain, #120 1 Refill Prov:ARMANDO GAGNON S. 07/15/17 Topiramate* (Topamax*) 25 Mg Tablet, 50 MG PO BID, #60 TAB 3 Refills Prov:ARMANDO GAGNON S. 07/15/17 Meclizine Hcl* (Antivert*) 12.5 Mg Tab, 12.5 MG PO Q8 Y for vertigo, #30 TAB Prov:MAR BOWER 11/19/16 Reported Medications Latanoprost (Latanoprost) 2.5 Ml Drops, 1 DROP BOTH EYES QHS, #1 BOTTLE 11/16/16 Brimonidine Tartrate* (Brimonidine Tartrate*) 0.2%-15ML Drop Opht, 1 DROP BOTH EYES Q8, #1 EA 11/16/16 Bromfenac Sodium (Bromfenac Sodium) 1.7 Ml Drops, 1.7 ML OP QAM, BOTTLE 11/16/16 Cyclosporine (RESTASIS) 1 Each Droperette, 1 DROP BOTH EYES Q12, #1 BOX 11/16/16 Levothyroxine Sodium* (Levothyroxine Sodium*) 125 Mcg Tablet, 125 MCG PO BEFORE BREAKFAST, #30 TAB 11/16/16 Discontinued Reported Medications Topiramate* (Topiramate*) 100 Mg Tablet, 100 MG PO BID, TAB 11/16/16 Primary Care Provider Gigi Dean Time spent on discharge: > 30 minutes Pending Labs Laboratory Tests Test 07/15/17 04:24 White Blood Count 8.810^3/ul (4.8-10.8) Red Blood Count 5.2510^6/ul (4.70-6.10) Hemoglobin 16.4g/dl (14.0-18.0) Hematocrit 47.8% (42.0-52.0) Mean Corpuscular Volume 91.0fl (82.0-101.0) Mean Corpuscular Hemoglobin 31.2pg (29.0-33.0) Mean Corpuscular Hemoglobin Concent 34.3g/dl (32.0-37.0) Red Cell Distribution Width 13.4% (11.5-14.5) Platelet Count 67202^3/UL (140-415) Mean Platelet Volume 12.9fl (7.4-10.4) Neutrophils % 56.1% (39.0-77.0) Lymphocytes % 26.2% (15.0-51.0) Monocytes % 8.2% (0.0-11.0) Eosinophils % 8.3% (0.0-7.0) Basophils % 0.9% (0.0-2.0) Nucleated Red Blood Cells % 0.0/100WBC (0.0-0.0) Neutrophils # (Manual) 4.910^3/ul (1.7-7.5) Lymphocytes # 2.310^3/ul (0.8-2.9) Monocytes # 0.710^3/ul (0.3-0.9) Eosinophils # 0.710^3/ul (0.0-0.5) Basophils # 0.110^3/ul (0.0-0.1) Nucleated Red Blood Cells # 0.010^3/ul (0.0-0.0) Sodium Level 140mmol/L (135-144) Potassium Level 4.8mmol/L (3.5-5.1) Chloride Level 105mmol/L (97-110) Carbon Dioxide Level 26mmol/L (21-31) Anion Gap 14 (8-16) Blood Urea Nitrogen 18mg/dl (7-20) Creatinine 1.14mg/dl (0.61-1.24) Glucose Level 98mg/dl (70-220) Calcium Level 9.3mg/dl (8.4-10.2) ARMANDO GAGNON Jul 15, 2017 13:59
--- NOTE | 2017-07-15 15:13 | PN ---
Date/Time of Note Date/Time of Note DATE: 07/15/17 TIME: 15:09 Assessment/Plan VTE Prophylaxis VTE Prophylaxis Intervention: ambulation Lines/Catheters IV [facility]ter [facility] (from [facility]ine Lock Urinary Cath still in place: No Assessment/Plan Chief Complaint/Hosp Course 5 Problems: Assessment/Plan Assessment * Abdominal pain left lower quadrant Colono2 small 3 mm ea. polyps in the rectum. Ablated * Moderate to severe diverticulosis left colon. * Melanosis coli * Moderate-sized internal hemorrhoids Graves disease Plan * Stable for outpatient management * case discussed with Dr Garland * further orders will depend on clinical course Subjective 24 Hr Interval Summary Free Text/Dictation * Course reviewed * Colonoscopy 2 small 3 mm ea. polyps in the rectum. Ablated * Moderate to severe diverticulosis left colon. * Melanosis coli * Moderate-sized internal hemorrhoids * No untoward events overnight Exam/Review of Systems Vital Signs Vitals Vital Signs Date Time Temp Pulse Resp B/P Pulse Ox O2 Delivery O2 Flow Rate FiO2 07/15/17 08:14 97.8 69 18 128/87 98 07/14/17 17:52 Room Air Intake and Output 07/14/17 07/14/17 07/15/17 15:00 23:00 07:00 Intake Total 820 ml 250 ml Balance 820 ml 250 ml Exam Constitutional: alert Psych: nl mood/affect, no complaints Head: atraumatic, normocephalic Eyes: EOMI, PERRL, nl conjunctiva, nl lids, nl sclera ENMT: nl external ears & nose, nl lips & teeth, nl nasal mucosa & septum Neck: non-tender, supple Respiratory: clear to auscultation, normal air movement Cardiovascular: nl pulses, regular rate and rhythm Gastrointestinal: nl liver, spleen, non-tender, soft Musculoskeletal: nl extremities to inspection, nl gait and stance Extremities: normal pulses Neurological: nl speech, nl strength Skin: nl turgor, No rash or lesions Lymph: nl lymph nodes Results Result Diagram: 07/15/17 0424 07/15/174 Results 24 hrs Laboratory Tests Test 07/15/17 04:24 White Blood Count 8.8 # Red Blood Count 5.25 Hemoglobin 16.4 Hematocrit 47.8 Mean Corpuscular Volume 91.0 Mean Corpuscular Hemoglobin 31.2 Mean Corpuscular Hemoglobin Concent 34.3 Red Cell Distribution Width 13.4 Platelet Count 167 Mean Platelet Volume 12.9 H Neutrophils % 56.1 Lymphocytes % 26.2 Monocytes % 8.2 Eosinophils % 8.3 H Basophils % 0.9 Nucleated Red Blood Cells % 0.0 Neutrophils # (Manual) 4.9 Lymphocytes # 2.3 Monocytes # 0.7 Eosinophils # 0.7 H Basophils # 0.1 Nucleated Red Blood Cells # 0.0 Sodium Level 140 Potassium Level 4.8 Chloride Level 105 Carbon Dioxide Level 26 Anion Gap 14 Blood Urea Nitrogen 18 Creatinine 1.14 Glucose Level 98 Calcium Level 9.3 Medications Medications Current Medications Morphine Sulfate (morphine) 4 mg Q4H PRN IV PAIN; Start 07/13/17 at 02:30 Ondansetron HCl (Zofran Inj) 4 mg Q6H PRN IV NAUSEA AND/OR VOMITING; Start at 02:30 Acetaminophen (Tylenol Tab) 650 mg Q6H PRN PO PAIN AND OR ELEVATED TEMP; Start 07/13/17 at 02:30 Heparin Sodium (Porcine) (Heparin (5000 Units/0.5 ml)) 5,000 unit BID SC Last administered on 07/14/17 21:26; Admin Dose 5,000 UNIT; Start 07/13/17 at 09:00 Brimonidine Tartrate (Alphagan 0.2%) 1 drop Q8 BOTH EYES ; Start 07/13/17 at 06: 00 Cyclosporine (Restasis) 1 drop Q12 BOTH EYES ; Start 07/13/17 at 09:00 Latanoprost (Xalatan) 1 drop QHS BOTH EYES ; Start 07/13/17 at 21:00 Meclizine HCl (Antivert) 12.5 mg Q8 PRN PO vertigo Last administered on 22:46; Admin Dose 12.5 MG; Start 07/13/17 at 04:30 Topiramate (Topamax) 50 mg BID PO Last administered on 07/15/17 09:34; Admin Dose 50 MG; Start 07/13/17 at 21:00 Topiramate (Topamax) 100 mg BID PO Last administered on 07/15/17 09:34; Admin Dose 100 MG; Start 07/14/17 at 21:00 Hyoscyamine (Levsin (Sl)) 0.125 mg Q4H PRN SL pain; Start 07/14/17 at 17:30 Zolpidem Tartrate (Ambien) 10 mg HS PRN PO INSOMNIA Last administered on t 21:53; Admin Dose 10 MG; Start 07/14/17 at 21:30 JASON GOEL NP Jul 15, 2017 15:13
== END 2017-07-15 15:00 | disposition home or self-care (01) | DRG 392 ==
LOC: E/R 21:20 → MS1 07-13 00:49
PROVIDERS: ADMIT Internal Medicine; ATTEND Internal Medicine
PROC: 0DBP8ZX Excision of Rectum, Via Natural or Artificial Opening Endoscopic, Diagnostic (ICD-10-PCS; principal; 2017-07-14 21:30)
DX: K57.30 Diverticulosis of large intestine without perforation or abscess without bleeding (principal); K64.8 Other hemorrhoids; K62.1 Rectal polyp; K63.89 Other specified diseases of intestine; N40.0 Benign prostatic hyperplasia without lower urinary tract symptoms; R10.32 Left lower quadrant pain
CPT/HCPCS: 36415; 71010; 74176; 76870; 80048; 80053; 81003; 83690; 83735; 84100; 84153; 84154; 84484; 85025; 96374; 96375; J1644; J2270; J2405; J3480; J7040

== ENCOUNTER 2017-10-26 21:16 | Emergency (ER) | payer BC ==
[~2017-10-26] VITALS: Ht 182.9 cm; Wt 80.1 kg
[~2017-10-26 21:16] MED LIST changes: +HYOS0.1297 SL; -TOPI-25 PO; +TOPI25TA51 PO
[2017-10-26 21:41] VITALS: Ht 182.9 cm; Wt 80.1 kg
[2017-10-26] MEDS ORDERED: KETOROLAC 60 MG INJ IM STA (23:32)
--- NOTE | 2017-10-26 23:44 | ERD ---
ER Documentation Chief Complaint Chief Complaint Jaw pain for 2 months HPI 52-year-old male who presents to the emergency department for jaw pain for 2 months. Stated that he went to his dentist 2 months ago and he believes that this is precipitated by his dentist his dentist after tooth cleaning. Denies headache, dizziness, blurred vision, throat pain, vomiting, loss of appetite, shoulder pain, chest pain, back pain, abdomen, nausea, vomiting, constipation, diarrhea, urinary symptoms, loss of bowel bladder control, trauma, injury, falls , recent long travel, recent travel, recent exposure to any illness, recent antibiotic use in the last 3 months, fever, chills. ROS All systems reviewed and are negative except as per history of present illness. Medications Home Meds Active Scripts Ibuprofen* (Motrin*) 800 Mg Tab, 800 MG PO Q8 Y for PAIN AND OR ELEVATED TEMP, # 30 TAB Prov:PRASHANT MEDINA Darlene 10/27/17 Hyoscyamine Sulfate* (Hyoscyamine Sulfate*) 0.125 Mg Tab.subl, 0.125 MG SL Q4H Y for pain, #120 1 Refill Prov:ARMANDO GAGNON S. 07/15/17 Topiramate* (Topamax*) 25 Mg Tablet, 50 MG PO BID, #60 TAB 3 Refills Prov:ARMANDO GAGNON S. 07/15/17 Meclizine Hcl* (Antivert*) 12.5 Mg Tab, 12.5 MG PO Q8 Y for vertigo, #30 TAB Prov:MAR BOWER 11/19/16 Reported Medications Latanoprost (Latanoprost) 2.5 Ml Drops, 1 DROP BOTH EYES QHS, #1 BOTTLE 11/16/16 Brimonidine Tartrate* (Brimonidine Tartrate*) 0.2%-15ML Drop Opht, 1 DROP BOTH EYES Q8, #1 EA 11/16/16 Bromfenac Sodium (Bromfenac Sodium) 1.7 Ml Drops, 1.7 ML OP QAM, BOTTLE 11/16/16 Cyclosporine (RESTASIS) 1 Each Droperette, 1 DROP BOTH EYES Q12, #1 BOX 11/16/16 Levothyroxine Sodium* (Levothyroxine Sodium*) 125 Mcg Tablet, 125 MCG PO BEFORE BREAKFAST, #30 TAB 11/16/16 Allergies Allergies: Coded Allergies: No Known Allergies (Verified Allergy, Unknown, 11/17/16) PMhx/Soc History of Surgery: No Anesthesia Reaction: No Hx Neurological Disorder: No Hx Respiratory Disorders: No Hx Cardiac Disorders: No Hx Psychiatric Problems: No Hx Miscellaneous Medical Probl: Yes (HYPOTHYROID) Hx Alcohol Use: No Hx Substance Use: No Hx Tobacco Use: No Physical Exam Vitals Vital Signs Date Time Temp Pulse Resp B/P Pulse Ox O2 Delivery O2 Flow Rate FiO2 10/26/17 21:41 98.3 56 16 161/86 100 Physical Exam Const: Well-appearing. Not in acute distress. Head: Atraumatic Eyes: Normal Conjunctiva ENT: Normal External Ears, Nose and Mouth. Has pain to bilateral jaw but has good and full range of motion. No TMJ. No neck stiffness. No signs of tooth avulsion. No signs of tooth abscess. Throat: Uvula is midline and not displaced. Tonsils are +1 bilaterally without redness without exudates. Tolerating secretions. Patent airway. Speaks full and clear sentences. Neck: Full range of motion..~ No meningismus. Resp: Clear to auscultation bilaterally Cardio: Regular rate and rhythm, no murmurs Abd: Soft, non tender, non distended. Normal bowel sounds Skin: No petechiae or rashes Back: No midline or flank tenderness Ext: No cyanosis, or edema Neur: Awake and alert Psych: Normal Mood and Affect Results 24 hrs Current Medications Medications (Trade) Dose Ordered Sig/Ary Route PRN Reason Start Time Stop Time Status Last Admin Dose Admin Ketorolac Tromethamine (Toradol) 60 mg ONCE STAT IM 10/26/17 23:32 10/26/17 23:33 DC 10/26/17 23:56 Procedures/MDM I have low suspicion for dislocation, fracture, locked jaw, TMJ but I did x-ray of the mandibles because this was requested by his primary care physician. X-ray of the mandible: Negative for evidence of acute fracture or dislocation of the mandible. Temporomandibular joints are unremarkable. Dental amalgam as described. Treatment: Toradol IM. With relief of symptoms. No difficulty swallowing. P.o. challenge was done. No episode of emesis here in the emergency department. Good and full range of motion of the jaw. Patient will be discharged with jaw pain. Prescribed with Motrin. Follow-up with PCP in the next 24-48 hours. Come back here in the emergency department for any new symptoms or any worsening symptoms. All questions and concerns are answered. Patient verbalized understanding and agreed with the plan of care. Hemodynamically stable on discharge. Departure Diagnosis: Primary Impression: Jaw pain Condition: Stable Additional Instructions: Follow-up with PCP in the next 24-48 hours. Come back here in the emergency department for any new symptoms or any worsening symptoms. All questions and concerns are answered. Patient verbalized understanding and agreed with the plan of care. PRASHANT MEDINA Oct 26, 2017 23:44
--- NOTE | 2017-10-27 00:39 | RADRPT ---
PROCEDURE: XR Mandible. CLINICAL INDICATION: 52 years of age, male. Pain. No trauma. TECHNIQUE: Four views of the mandible are available for review. COMPARISON: No prior studies are available for comparison. FINDINGS: Negative for evidence of acute fracture of the mandible. Temporomandibular joints are unremarkable. There is dental amalgam on the right mandibular molars. The paranasal sinuses and mastoid air cells are clear. Additional comment: Please note that anterior teeth are incompletely evaluated. Negative for bony r esorption around the roots of the posterior mandibular teeth. There are dental amalgam and root rozina ls involving maxillary teeth that are incompletely evaluated. IMPRESSION: 1. Negative for evidence of acute fracture or dislocation of the mandible. Temporomandibular joint s are unremarkable. 2. Dental amalgam as described. RPTAT: HCTS Physician Jevon Date Time Electronically viewed and signed by Physician Jevon on 10/27/2017 00:38 /
[2017-10-27] MEDS ORDERED: IBUP800T25 PO (00:59)
== END 2017-10-27 01:28 | disposition home or self-care (01) ==
LOC: FTE 21:16
DX: R68.84 Jaw pain (principal); E03.9 Hypothyroidism, unspecified
CPT/HCPCS: 70110; J1885; 96372

== ENCOUNTER 2018-12-09 12:18 | Emergency (ER) | payer BC ==
[~2018-12-09] VITALS: Wt 87.5 kg
[~2018-12-09 12:18] MED LIST changes: +IBUP800T48 PO; +LEVO125T7 PO; -LEVO125T75 PO; +TOPI25TA PO; -TOPI25TA51 PO
[2018-12-09] MEDS ORDERED: ASPIRIN 81 MG TAB PO STA (15:57)
[2018-12-09] MEDS ORDERED: LEVO100T8 PO (16:21)
[2018-12-09] MEDS ORDERED: TOPI100T11 PO (16:22)
[2018-12-09] MEDS ORDERED: ESCI20TA38 PO (16:23)
[2018-12-09] MEDS ORDERED: CLON1TAB13 PO (16:24)
--- NOTE | 2018-12-09 17:23 | ERD ---
ER Documentation Chief Complaint Chief Complaint CHEST PAIN/HTN X 5 DAYS HPI 53-year-old male with a history of hypothyroidism on medications for this presenting with complaints of higher than usual blood pressure within the past 5 days. He normally monitors his blood pressure for unclear reasons. He has noticed that over the past 5 days the blood pressures have been higher than usual, with a systolic blood pressure in the 150s-170s, and diastolic blood pressure in the 90s. He denies any significant chest pain but just states that he occasionally feels a flicker and needle like pain in his left chest that resolves within a few seconds. He denies any associated shortness of breath, headache, dizziness, vision disturbance, focal weakness or numbness. He denies history of hypertension. ROS All systems reviewed and are negative except as per history of present illness. Medications Home Meds Reported Medications Clonazepam* (Clonazepam*) 1 Mg Tablet, 0.5 MG PO BID PRN for ANXIETY, TAB 12/09/18 Escitalopram Oxalate* (Escitalopram Oxalate*) 20 Mg Tablet, 10 MG PO BID, #30 TAB 12/09/18 Topiramate* (Topiramate*) 100 Mg Tablet, 50 MG PO QHS, TAB 12/09/18 Levothyroxine Sodium* (Levothyroxine Sodium*) 100 Mcg Tablet, 100 MCG PO BEFORE BREAKFAST, #30 TAB 12/09/18 Discontinued Reported Medications Latanoprost (Latanoprost) 2.5 Ml Drops, 1 DROP BOTH EYES QHS, #1 BOTTLE 11/16/16 Brimonidine Tartrate* (Brimonidine Tartrate*) 0.2%-15ML Drop Opht, 1 DROP BOTH EYES Q8, #1 EA 11/16/16 Bromfenac Sodium (Bromfenac Sodium) 1.7 Ml Drops, 1.7 ML OP QAM, BOTTLE 11/16/16 Cyclosporine (RESTASIS) 1 Each Droperette, 1 DROP BOTH EYES Q12, #1 BOX 11/16/16 Levothyroxine Sodium* (Levothyroxine Sodium*) 125 Mcg Tablet, 125 MCG PO BEFORE BREAKFAST, #30 TAB 11/16/16 Discontinued Scripts Ibuprofen* (Motrin*) 800 Mg Tab, 800 MG PO Q8 PRN for PAIN AND OR ELEVATED TEMP, #30 TAB Prov:PRASHANT MEDINA 10/27/17 Hyoscyamine Sulfate* (Hyoscyamine Sulfate*) 0.125 Mg Tab.subl, 0.125 MG SL Q4H PRN for pain, #120 1 Refill Prov:AMRANDO GAGNON S. 07/15/17 Topiramate* (Topamax*) 25 Mg Tablet, 50 MG PO BID, #60 TAB 3 Refills Prov:MIGUEL GAGNONP S. 07/15/17 Meclizine Hcl* (Antivert*) 12.5 Mg Tab, 12.5 MG PO Q8 PRN for vertigo, #30 TAB Prov:MAR BOWER 11/19/16 Allergies Allergies: Coded Allergies: No Known Allergies (Verified Allergy, Unknown, 12/09/18) PMhx/Soc History of Surgery: No Anesthesia Reaction: No Hx Neurological Disorder: No Hx Respiratory Disorders: No Hx Cardiac Disorders: No Hx Psychiatric Problems: No Hx Miscellaneous Medical Probl: Yes (HYPOTHYROID) Hx Alcohol Use: No Hx Substance Use: No Hx Tobacco Use: No Smoking Status: Never smoker FmHx Brothers are all healthy. Mother healthy. Family History: coronary disease (Father of an [place]. ) Physical Exam Vitals Vital Signs Date Temp Pulse Resp B/P (MAP) Pulse Ox O2 O2 Flow FiO2 Time Delivery Rate 12/09/18 67 18 145/95 98 Room Air 17:31 (112) 12/09/18 98.1 78 18 175/71 99 12:28 (105) Physical Exam Const: No acute distress, well-appearing Head: Atraumatic Eyes: Normal Conjunctiva ENT: Normal External Ears, Nose and Mouth. Neck: Full range of motion. No meningismus. Resp: Clear to auscultation bilaterally Cardio: Regular rate and rhythm, no murmurs, 2+ distal pulses in all 4 extremities Abd: Soft, non tender, non distended. Normal bowel sounds Skin: No petechiae or rashes Back: No midline or flank tenderness Ext: No cyanosis, or edema Neur: Awake and alert, normal speech, no facial asymmetry, moving all extremities Psych: Normal Mood and Affect Result Diagram: 12/09/18 1612 12/09/18 1612 Results 24 hrs Laboratory Tests Test 12/09/18 16:12 White Blood Count 7.3 10^3/ul Red Blood Count 5.04 10^6/ul Hemoglobin 15.8 g/dl Hematocrit 46.6 % Mean Corpuscular Volume 92.5 fl Mean Corpuscular Hemoglobin 31.3 pg Mean Corpuscular Hemoglobin Concent 33.9 g/dl Red Cell Distribution Width 13.0 % Platelet Count 145 10^3/UL Mean Platelet Volume 12.7 fl Immature Granulocytes % 0.300 % Neutrophils % 44.1 % Lymphocytes % 33.9 % Monocytes % 7.9 % Eosinophils % 12.6 % Basophils % 1.2 % Nucleated Red Blood Cells % 0.0 /100WBC Immature Granulocytes # 0.020 10^3/ul Neutrophils # 3.2 10^3/ul Lymphocytes # 2.5 10^3/ul Monocytes # 0.6 10^3/ul Eosinophils # 0.9 10^3/ul Basophils # 0.1 10^3/ul Nucleated Red Blood Cells # 0.0 10^3/ul Sodium Level 142 mmol/L Potassium Level 4.1 mmol/L Chloride Level 100 mmol/L Carbon Dioxide Level 30 mmol/L Anion Gap 12 Blood Urea Nitrogen 19 mg/dl Creatinine 0.75 mg/dl Est Glomerular Filtrat Rate mL/min > 60 mL/min Glucose Level 96 mg/dl Calcium Level 9.2 mg/dl Troponin I < 0.012 ng/ml Current Medications Medications Dose Sig/Ary Start Time Status Last (Trade) Ordered Route PRN Stop Time Admin Dose Reason Admin Aspirin 162 mg ONCE STAT 12/09/18 DC 12/09/18 (Aspirin) PO 15:57 16:16 12/09/18 15:58 Procedures/MDM EMERGENT LABS AND DIAGNOSTIC STUDIES: Lab Results above were reviewed and interpreted by me. CBC: no anemia or evidence of infection BMP: No evidence of electrolyte abnormality, renal failure, hypoglycemia Troponin within normal limits, not indicative of cardiac ischemia 12-lead EKG was interpreted by Shereen Saxena MD: Normal Sinus Rhythm Normal axis Normal intervals No acute ST or T wave changes suggestive of acute ischemia or STEMI. Radiology Results as interpreted by Radiology below were reviewed by Prashant Saxena MD: Chest x-ray shows no acute abnormalities Initial Nursing notes reviewed. Previous Medical Records requested via the Electronic Health Record. EMERGENCY DEPARTMENT COURSE / MEDICAL DECISION MAKING: The patient presents with chest pain. Vitals are stable other than mild hyp ertension. I considered pulmonary embolism, aortic dissection, pneumothorax among other diagnoses. Evaluation for acute coronary syndrome was performed. The HEART score was utilized for risk stratification and found to be <3. Repeat EKG and troponin not indicated as the patient has had symptoms for several days. Based on this evaluation the patient's risk of major adverse cardiac events is <1%. I do not suspect hypertensive emergency or urgency. Shared decision making occurred with patient and the decision has been made to discharge the patient for outpatient evaluation . Advised to record his blood pressures and give the record to his primary care doctor. At this time I do not think he needs a new prescription for any new antihypertensives. Patient instructed to arrange follow up with PCP in the next 2 days and return to the ED for any new or worsening symptoms. Departure Diagnosis: Primary Impression: Hypertension Hypertension type: unspecified Qualified Codes: I10 - Essential (primary) hypertension Condition: Stable Patient Instructions: High Blood Pressure (Hypertension) Additional Instructions: Make an appointment to see your primary care doctor within the next 1 week. If any of your symptoms worsen, return to the ER for reevaluation. As we discussed, keep a record of your blood pressures daily and provide that to your primary care doctor. KARL SAXENA MD Dec 09, 2018 17:23
[2018-12-09 17:31] VITALS: BP 145/95; PULSE 67; RESP 18
== END 2018-12-09 18:13 | disposition home or self-care (01) ==
LOC: E/R 12:18
DX: I10 Essential (primary) hypertension (principal); E03.9 Hypothyroidism, unspecified
CPT/HCPCS: 36415; 71045; 80048; 84484; 85025; Z7502; Z7610; 93005